=== PATIENT | female | born 1955 | race Caucasian/White ===

== ENCOUNTER 2017-03-02 21:36 | Emergency (ER) | payer OTHER, MEDICARE ==
[~2017-03-02 21:36] MED LIST: ASPI81CH7 CHEW; HYDR-3534 PO; LEVA500T PO; OMEGCAP29 PO; VITA1000 PO
[2017-03-02 21:43] VITALS: BP 148/82; PULSE 88; RESP 18; TEMP 97.8; O2SAT 96
[2017-03-02] MEDS ORDERED: OMEP20TA PO (22:36)
[2017-03-02] MEDS ORDERED: ACETAMINOPHEN/HYDROcodone 325 MG/5 MG TAB PO ONE (22:45)
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
[2017-03-02] MEDS ORDERED: HYDR-3534 PO (23:34)
== END 2017-03-03 00:40 | disposition home or self-care (01) ==
LOC: NEPC 21:36
DX: S16.1XXA Strain of muscle, fascia and tendon at neck level, initial encounter (principal); V43.93XA Unspecified car occupant injured in collision with pick-up truck in traffic accident, initial encounter; Y92.488 Other paved roadways as the place of occurrence of the external cause
CPT/HCPCS: 70450; 72125; 99284; L0150

== ENCOUNTER 2017-03-05 15:51 | Emergency (ER) | payer MEDICARE, OTHER ==
[~2017-03-05] VITALS: Ht 180.3 cm; Wt 96.7 kg
[~2017-03-05 15:51] MED LIST changes: -LEVA500T PO; -OMEGCAP29 PO; +OMEP20TA PO
[2017-03-05 15:59] VITALS: BP 131/94; PULSE 88; RESP 20; TEMP 98.5; O2SAT 94
[2017-03-05] MEDS ORDERED: SODIUM CHLOR 0.9% 1000 ML INJ 1,000 ML IV SCH (16:16)
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
[2017-03-05 16:30] VITALS: O2SAT 96
[2017-03-05] MEDS ORDERED: MORPHINE SULFATE 4 MG/ML INJ IV PUSH ONE (16:30)
[2017-03-05] MEDS ORDERED: ONDANSETRON HCL 4 MG/2 ML VIAL IVP ONE (16:30)
[2017-03-05] MEDS ORDERED: SODIUM CHLORIDE 0.9% FLUSH 10 ML FLUSH IV FLUSH PRN (16:30)
[2017-03-05 16:34] LABS: BLOOD, URINE NEG (NEG); GLUCOSE,URINE NEG (NEG); KETONE, URINE NEG (NEG); NITRITE,URINE NEG (NEG); PH, URINE 5.5 (5.0-8.5)
[2017-03-05 16:35] LABS: AUTOMATED NEUTROPHIL # 3.6 TH/MM3 (1.8-7.7); BASOPHIL # 0.1 TH/MM3 (0-0.2); BASOPHIL % 0.9 % (0.0-2.0); EOSINOPHIL # 0.1 TH/MM3 (0-0.4); EOSINOPHIL % 1.1 % (0.0-4.0); HEMATOCRIT 36.5 % (35.0-46.0); HEMO FLAGS DIFF FINAL; LYMPH % 29.5 % (9.0-44.0); LYMPHOCYTE # 1.8 TH/MM3 (1.0-4.8); MEAN CELL VOLUME 85.5 FL (80.0-100.0); MEAN CORPUSCULAR HEMOGLOBIN 29.1 PG (27.0-34.0); MONO % 9.3 % (0.0-8.0); NEUT % 59.2 % (16.0-70.0); PLATELET COUNT 382 TH/MM3 (150-450); RED BLOOD COUNT 4.27 MIL/MM3 (4.00-5.30); RED CELL DISTRIBUTION WIDTH 12.5 % (11.6-17.2); WHITE BLOOD COUNT 6.2 TH/MM3 (4.0-11.0)
[2017-03-05 16:38] LABS: METHOD OF COLLECTION CLEAN CATCH; URINE COLOR STRAW (YELLW/STRAW)
[2017-03-05 16:39] LABS: COMMENT (UR) CULT NOT INDICATED; CULTURE IF INDICATED CULT NOT INDICATED; RBC, URINE 0-3 /hpf (0-3); SQUAMOUS EPITHELIAL CELL URINE 0-5 /hpf (0-5)
[2017-03-05 16:42] LABS: POTASSIUM 3.9 MEQ/L (3.5-5.1)
[2017-03-05 16:45] LABS: BICARBONATE 26.7 MEQ/L (21.0-32.0)
[2017-03-05] MEDS ORDERED: KETOROLAC TROMETHAMINE 30 MG/ML (IVP) VIAL IV PUSH ONE (17:15)
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
[2017-03-05] MEDS ORDERED: TRAM50TA PO (18:32)
[2017-03-05 19:00] VITALS: BP 144/86
== END 2017-03-05 19:01 | disposition home or self-care (01) ==
LOC: PHED 15:51
DX: M54.5 Low back pain (principal); R31.9 Hematuria, unspecified
CPT/HCPCS: 74176; 80048; 81001; 85025; 96361; 96374; 96375; 99285; J1885; J2405; J7030